=== PATIENT | female | born 1990 | race African-American/Black ===

== ENCOUNTER 2016-09-26 05:27 | Day surgery (SDC) | payer OTHER ==
[2016-09-23 13:05] VITALS: BMI 22.4
--- NOTE | 2016-09-26 11:03 | HP ---
History & Physical Update - History History: No Change - Physical Physical: No Change - Assessment Assessment: No Change - Plan Plan: No Change (Multipatrity and Desires permanent sterilization - for bilateral salpingectomy)
[2016-09-26] MEDS ORDERED: DEXAMETHASONE SOD PHOSPHATE 4 MG/1 ML VIAL ONE (11:06)
[2016-09-26] MEDS ORDERED: ROCURONIUM BROMIDE 50 MG/5 ML VIAL ONE (11:06)
[2016-09-26] MEDS ORDERED: KETOROLAC TROMETHAMINE 30 MG/1 ML VIAL ONE (11:06)
[2016-09-26] MEDS ORDERED: MIDAZOLAM HCL 2 MG/2 ML SINGLE DOSE VIAL ONE (11:06)
[2016-09-26] MEDS ORDERED: ACETAMINOPHEN 325 MG TABLET (FP) PO PRN (11:17)
[2016-09-26] MEDS ORDERED: IBUPROFEN 800 MG/8 ML IJ IVPB PRN (11:17)
[2016-09-26] MEDS ORDERED: LACTATED RINGERS SOLUTION 1,000 ML IV SCH (11:30)
[2016-09-26] MEDS ORDERED: BUPIVACAINE HCL/PF 0.5% (5MG/ML) 10 ML VIAL IJ ONE (11:48)
[2016-09-26] MEDS ORDERED: NEOSTIGMINE METHYLSULFATE 0.5 MG/ML - 10 ML MDV ONE (11:55)
[2016-09-26] MEDS ORDERED: GLYCOPYRROLATE 0.2 MG/1 ML VIAL ONE (11:55)
--- NOTE | 2016-09-26 12:18 | SURG ---
Surgery Ethylbenzene Converter Operator Note Ethylbenzene Converter Operator: Ashley Caldera PA-C Date of Service: 09/26/16 Diagnosis: Multiparity and desires permanent sterilization Procedure: laparoscopic bilateral salpingectomy I was present for the entirety of the operative procedure. For further detail, please refer to operative report. Visit type - Case Type Case Type: Scheduled Admission - New patient This patient is new to me today: Yes Date on this admission: 09/26/16
[2016-09-26] MEDS ORDERED: oxyCODONE HCL 5 MG TABLET PO PRN (12:19)
[2016-09-26] MEDS ORDERED: ONDANSETRON 4 MG/2 ML VIAL IVPUSH PRN (12:19)
--- NOTE | 2016-09-26 13:29 | OP ---
Operative Note - Note: Operative Date: 09/26/16 Pre-Operative Diagnosis: multiparity, desires permanent sterilization Operation: laparoscopic bilateral salpingectomy Findings: normal uterus normal bilateral tubes and ovaries normal intra abdominal anatomy Post-Operative Diagnosis: Same as Pre-op Surgeon: Samantha Mccarthy Police [employer] Lieutenant: Ashley Caldera Anesthesiologist/CREW MANAGER: Jason Luna Jr. Anesthesia: General Specimens Removed: bilateral fallopian tubes Estimated Blood Loss (mls): 10 Operative Report Dictated: Yes
[2016-09-26 13:54] VITALS: TEMP 98
--- NOTE | 2016-09-26 14:15 | OP ---
DATE OF OPERATION: 09/26/2016 PREOPERATIVE DIAGNOSIS: Multiparity and a desire for permanent sterilization. POSTOPERATIVE DIAGNOSIS: Multiparity and a desire for permanent sterilization. PROCEDURE: Laparoscopic bilateral salpingectomy. SURGEON: Samantha Mccarthy MD SCIENTIFIC SYSTEMS ANALYST: GABBY Jones ANESTHESIA: General administered by Jason Luna CRNA. ESTIMATED BLOOD LOSS: 10 mL. COMPLICATIONS: None. SPECIMENS: Include bilateral fallopian tubes. COUNTS: Sponge, needle, and instrument counts were correct at the end of the case. DISPOSITION: Stable to PACU. BRIEF HISTORY AND PROCEDURE: Patient is a 26-year-old para 4 female who has been requesting voluntary sterilization in the office. She was consented for the procedure, laparoscopic bilateral salpingectomy, and consents were signed in the office. The patient was then admitted to [facility] on September 26, 2016. Consents were reconfirmed. She was then taken back to the operating room, where she was given general anesthesia and then prepped and draped in the dorsal lithotomy position in the usual standard fashion. A Qiu catheter was placed. Next, a 5-mm skin incision was created in the umbilicus, and a Veress needle was placed intraabdominally, and the abdomen was insufflated with CO2 gas. A trocar was then placed, and a camera was inserted to confirm intraabdominal placement. Then, 2 bilateral lower quadrant ports 5 mm in size were inserted under direct visualization. The left fallopian tube was identified and traced to its fimbriated end and elevated and dissected off its attachment to the ovary, mesosalpinx, and the uterus, and then was removed from the abdominal cavity under direct visualization and sent to Pathology. The same was repeated with the right fallopian tube. Bilateral surgical sites were noted to be hemostatic. Bilateral ureters were examined and noted within normal caliber and peristalsing. Bilateral ovaries were normal, uterus was normal, and intraabdominal contents were normal. Hemostasis was again appreciated after inspection, and all instruments and trocars were removed from the abdomen under direct visualization. The abdomen was then desufflated. The skin incisions were reapproximated using Biosyn suture and skin glue and Marcaine was placed under the skin for further pain management. The patient was then awoken from the anesthesia, recovering in stable condition. The Qiu catheter was removed. Sponge, needle, and instrument counts were reported to be correct, and she was recovering in stable condition in the PACU at the time of this dictation. SAMANTHA MCCARTHY DO /[id number] MTDD
[2016-09-26 19:37] VITALS: BP 104/62; PULSE 64
--- NOTE | 2016-09-27 11:27 | PATH ---
Surgical Pathology Report Patient Name: PHILLIP HUGHES [facility]. Rec. #: [id number] /Age/Gender: 1990 (Age: 26) / F Account: [id number] Location: [facility] SURGICAL Taken: 09/26/2016 Received: 09/26/2016 Reported: 09/27/2016 Physicians: Samantha Mccarthy M.D. Specimen(s) Received A: FALLOPIAN TUBE, LEFT B: FALLOPIAN TUBE, RIGHT Clinical History Voluntary sterilization/multiparity Laparoscopic bilateral salpingectomy Final Diagnosis A. LEFT FALLOPIAN TUBE, SALPINGECTOMY: FULL LUMINAL PORTION OF UNREMARKABLE FALLOPIAN TUBE, INCLUDING FIMBRIATED END. B. RIGHT FALLOPIAN TUBE, SALPINGECTOMY: FULL LUMINAL PORTION OF UNREMARKABLE FALLOPIAN TUBE, INCLUDING FIMBRIATED END. Electronically Signed Taiwo Spain M.D. Gross Description A. Received in formalin labelled "fallopian tube, left" is an 8.5 cm long by up to 0.7 cm in diameter fallopian tube including the fimbriated end. No focal lesions are identified. Guidance Consultant sections are submitted in one cassette. B. Received in formalin labelled "fallopian tube, right" is 2 portions of fallopian tube including the fimbriated end. The 2 pieces measure in aggregate 7.5 cm long by up to 0.6 cm in diameter. No focal lesions are identified. Guidance Consultant sections are submitted one cassette. [facility]/09/26/2016 [facility]/09/26/2016
== END 2016-09-26 16:35 | disposition home or self-care (01) ==
LOC: JASU-SURG 05:27
PROVIDERS: ATTEND Obstetrics & Gynecology
PROC: 0U574ZZ Destruction of Bilateral Fallopian Tubes, Percutaneous Endoscopic Approach (ICD-10-PCS; principal; 2016-09-26 11:00)
DX: Z30.2 Encounter for sterilization (principal)
CPT/HCPCS: 88302-TC; 94760

== ENCOUNTER 2017-04-07 14:39 | Emergency (ER) | payer OTHER ==
[2017-04-07 14:45] VITALS: BP 94/49; PULSE 100; TEMP 98.6; BMI 22.4
--- NOTE | 2017-04-07 17:13 | PDOC ---
History of Present Illness - General Chief Complaint: Sore Throat Stated Complaint: ABD PAIN Time Seen by Provider: 04/07/17 16:32 History Source: Patient Exam Limitations: No Limitations - History of Present Illness Initial Comments: 04/07/17 17:00 26 yr female with sore throat, fatigue, urinary burning and genital herpes outbreak started yesterday. Pt denies fever or chills no vomiting or diarrhea. Pt has lower pelvic pain, states pain with intercourse. no abnormal bleeding . 04/07/17 17:20 04/07/17 18:35 Timing/Duration: unsure Past History - Past Medical History Allergies/Adverse Reactions: Allergies Allergy/AdvReac Type Severity Reaction Status Date / Time No Known Allergies Allergy Verified 04/07/17 14:42 Home Medications: Ambulatory Orders Acyclovir [Zovirax -] 800 mg PO TID #6 tablet 04/07/17 Anemia: No Asthma: No Cancer: No Cardiac Disorders: No CVA: No COPD: No CHF: No Dementia: No Diabetes: No GI Disorders: No Disorders: No HTN: No Hypercholesterolemia: No Liver Disease: No Seizures: No Thyroid Disease: No Other medical history: bacterial vaginosis x2 - Surgical History Abdominal Surgery: No Appendectomy: No Cardiac Surgery: No Cholecystectomy: No Lung Surgery: No Neurologic Surgery: No Orthopedic Surgery: No - Immunization History Immunization Up to Date: Yes - Suicide/Smoking/Psychosocial Hx Smoking History: Never smoked Have you smoked in the past 12 months: No Hx Alcohol Use: No Drug/Substance Use Hx: No Substance Use Type: None Hx Substance Use Treatment: No Review of Systems - Review of Systems Able to Perform ROS?: Yes Is the patient limited French proficient: No Constitutional: Yes: Symptoms Reported, Malaise HEENTM: Yes: Symptoms Reported, See HPI, Throat Pain Respiratory: No: Symptoms reported Cardiac (ROS): No: Symptoms Reported ABD/GI: Yes: Symptoms Reported : Yes: Symptoms Reported, Burning, Discharge Musculoskeletal: No: Symptoms Reported Integumentary: No: Symptoms Reported Neurological: No: Symptoms reported *Physical Exam - Vital Signs Last Vital Signs Temp Pulse Resp BP Pulse Ox 98.6 F 100 H 20 94/49 99 04/07/17 14:42 04/07/17 14:42 04/07/17 14:42 04/07/17 14:42 04/07/17 14:42 - Physical Exam General Appearance: Yes: Nourished, Appropriately Dressed HEENT: positive: EOMI, KATHIE, TMs Normal, Pharyngeal Erythema. negative: Tonsillar Exudate, Tonsillar Erythema Neck: positive: Supple, Lymphadenopathy (R) Respiratory/Chest: positive: Lungs Clear, Normal Breath Sounds. negative: Chest Tender Cardiovascular: positive: Regular Rhythm, Regular Rate Female Pelvic Exam: positive: discharge (watery soliman thin , herpetic lesion to the outer labia minora) Gastrointestinal/Abdominal: positive: Normal Bowel Sounds, Soft Lymphatic: negative: Adenopathy Musculoskeletal: positive: Normal Inspection Extremity: positive: Normal Capillary Refill, Normal Inspection, Normal Range of Motion. negative: Tender Integumentary: positive: Normal Color, Dry, Warm Neurologic: positive: Fully Oriented, Alert, Normal Mood/Affect, Normal Response , Motor Strength 5/5 Medical Decision Making - Medical Decision Making 04/07/17 17:03 cc: urinary burning with vaginal discharge, for 2 days, sore throat and notice a herpetic lesion to the genital area (pt has history of genital herpes last outbreak more than one year ago) pt denies nvd or fever will check urine GC chlamydia vitals stable non toxic 04/07/17 17:14 *DC/Admit/Observation/Transfer Diagnosis at time of Disposition: Genital herpes Qualifiers: Herpes simplex infection site: vulvovaginitis Qualified Code(s): A60.04 - Herpesviral vulvovaginitis Pharyngitis Qualifiers: Pharyngitis/tonsillitis etiology: other specified organisms Qualified Code(s): J02.8 - Acute pharyngitis due to other specified organisms - Discharge Dispostion Disposition: HOME Condition at time of disposition: Good - Prescriptions Prescriptions: Acyclovir [Zovirax -] 800 mg PO TID #6 tablet - Referrals Referrals: Parth Pfeiffer MD [Primary Care Provider] - - Patient Instructions Additional Instructions: 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
[2017-04-07 17:51] LABS: URINE APPEARANCE CLEAR; URINE BILIRUBIN NEGATIVE (NEGATIVE); URINE BLOOD NEGATIVE (NEGATIVE); URINE COLOR YELLOW; URINE GLUCOSE (UA) NEGATIVE (NEGATIVE); URINE KETONE NEGATIVE (NEGATIVE); URINE LEUK ESTERASE TRACE (NEGATIVE); URINE NITRITE NEGATIVE (NEGATIVE); URINE UROBILINOGEN NEGATIVE mg/dL (0.2-1.0)
[2017-04-07 18:02] LABS: URINE PROTEIN 1+ (NEGATIVE)
[2017-04-07 18:03] LABS: URINE RBC <1 /hpf (0-3); URINE WBC 1 /hpf (3-5)
[2017-04-07] MEDS ORDERED: AZITHROMYCIN 1 GM PACKET PO ONE (18:35)
[2017-04-07] MEDS ORDERED: LIDOCAINE HCL 2% JELLY 10 ML CARTRIDGE ONE (18:41)
[2017-04-07] MEDS ORDERED: AZITHROMYCIN 500 MG TABLET PO ONE (19:01)
== END 2017-04-07 19:08 | disposition home or self-care (01) ==
LOC: JERFT 14:39
DX: J02.8 Acute pharyngitis due to other specified organisms (principal); A60.04 Herpesviral vulvovaginitis
CPT/HCPCS: 36415; 81003; 81015; 84703; 87070; 87086; 87205; 87491; 87591; 96372; 99281-25

== ENCOUNTER 2018-12-25 10:02 | Emergency (ER) | payer OTHER ==
[2018-12-25 10:20] VITALS: BP 124/70; PULSE 70; TEMP 98.3; BMI 24.7
[2018-12-25] MEDS ORDERED: SODIUM CHLORIDE FOR INHALATION 3 ML VIAL.NEB IH ONE (11:06)
--- NOTE | 2018-12-25 11:41 | PDOC ---
History of Present Illness - General Chief Complaint: Sore Throat Stated Complaint: SORE THROAT / EAR INFECTION Time Seen by Provider: 12/25/18 10:55 History Source: Patient Exam Limitations: No Limitations Past History - Past Medical History Allergies/Adverse Reactions: Allergies Allergy/AdvReac Type Severity Reaction Status Date / Time No Known Allergies Allergy Verified 12/25/18 10:18 Home Medications: Ambulatory Orders Hydrocortisone Acetate [Anusol Hc Suppository -] 25 mg RC DAILY PRN #7 supp.rect 05/11/17 Anemia: No Asthma: No Cancer: No Cardiac Disorders: No CVA: No COPD: No CHF: No Dementia: No Diabetes: No GI Disorders: No Disorders: No HTN: No Hypercholesterolemia: No Liver Disease: No Seizures: No Thyroid Disease: No - Surgical History Abdominal Surgery: No Appendectomy: No Cardiac Surgery: No Cholecystectomy: No Lung Surgery: No Neurologic Surgery: No Orthopedic Surgery: No - Immunization History Immunization Up to Date: Yes - Suicide/Smoking/Psychosocial Hx Smoking History: Never smoked Have you smoked in the past 12 months: No Information on smoking cessation initiated: No Hx Alcohol Use: No Drug/Substance Use Hx: No Substance Use Type: None Hx Substance Use Treatment: No *Physical Exam - Vital Signs Last Vital Signs Temp Pulse Resp BP Pulse Ox 98.3 F 70 17 124/70 100 12/25/18 10:18 12/25/18 10:18 12/25/18 10:18 12/25/18 10:18 12/25/18 11:11 - Physical Exam General Appearance: No: Apparent Distress HEENT: positive: Normal ENT Inspection, TMs Normal, Pharynx Normal, Other (+ voice hoarseness). negative: Muffled/Hoarse voice, Pharyngeal Erythema, Tonsillar Exudate, Tonsillar Erythema, Nasal Congestion, Rhinorrhea Neck: negative: Lymphadenopathy (R), Lymphadenopathy (L) Respiratory/Chest: positive: Lungs Clear, Normal Breath Sounds. negative: Respiratory Distress Cardiovascular: positive: Regular Rhythm, Regular Rate, S1, S2. negative: Murmur Gastrointestinal/Abdominal: positive: Normal Bowel Sounds, Soft. negative: Tender, Distended, Guarding, Rebound Integumentary: positive: Normal Color Neurologic: positive: Alert, Normal Mood/Affect ED Treatment Course - Medications Given in the ED: ED Medications Discontinued Medications Generic Name Dose Route Start Last Admin Trade Name Freq PRN Reason Stop Dose Admin Sodium Chloride 3 ml 12/25/18 11:06 12/25/18 11:11 Normal Saline For Inhalation - IH 12/25/18 11:07 3 ml ONCE ONE Administration Medical Decision Making - Medical Decision Making 28 y/o F with no sig pmh presents with dry cough x 1 week along with mild throat discomfort, now worsening. States she awoke today and noticed she was losing her voice. Yesterday, she drank tea and ate [place], which helped with her symptoms but today, her voice was worst. Also c/o R ear pain x 2 days. Denies fever, nasal congestion, rhinorrhea, sneezing, sob, cp, abd pain, n/v/d. Denies smoking Likely laryngitis PE unremarkable Patient was given saline neb, but states was not helping Patient was to be discharged, but left prior to getting discharge paperwork or getting registered 12/25/18 11:36 *DC/Admit/Observation/Transfer Diagnosis at time of Disposition: Laryngitis - Discharge Dispostion Disposition: HOME - Referrals - Patient Instructions Printed Discharge Instructions: DI for Laryngitis - Post Discharge Activity
== END 2018-12-25 11:45 | disposition left against medical advice (07) ==
LOC: JERFT 10:02
PROC: 3E0337Z Introduction of Electrolytic and Water Balance Substance into Peripheral Vein, Percutaneous Approach (ICD-10-PCS; principal; 2018-12-25)
DX: J04.0 Acute laryngitis (principal)
CPT/HCPCS: 96360; 99281-25

== ENCOUNTER 2021-09-25 09:20 | Emergency (ER) | payer OTHER ==
[2021-09-25 09:29] VITALS: BP 101/68; PULSE 73; TEMP 97.9; BMI 26.6
[2021-09-25 11:27] LABS: BASO % 0.5 % (0-2.0); HEMOGLOBIN 10.4 GM/dL (10.7-15.3); LYMPH % 26.5 % (8-40); MCH 25.5 pg (25.7-33.7); MCHC 31.6 g/dl (32.0-36.0); MEAN CELL VOLUME 80.7 fl (80-96); MEAN PLT VOLUME 8.5 fl (7.5-11.1); PLATELET COUNT 294 10^3/uL (134-434); RBC 4.09 M/mm3 (3.60-5.2); WHITE BLOOD COUNT 5.8 K/mm3 (4.0-10.0)
[2021-09-25 11:48] LABS: CHLORIDE 104 mmol/L (98-107); SODIUM 138 mmol/L (136-145)
[2021-09-25 11:50] LABS: CALCIUM 9.3 mg/dL (8.5-10.1)
[2021-09-25 11:51] LABS: ALBUMIN 3.9 g/dl (3.4-5.0); ANION GAP 4 MMOL/L (8-16); BLOOD UREA NITROGEN 10.7 mg/dL (7-18); CO2 30 mmol/L (21-32); GLUCOSE,RANDOM 83 mg/dL (74-106)
[2021-09-25 11:54] LABS: CREATININE 0.6 mg/dL (0.55-1.3); SGOT/AST 14 U/L (15-37); SGPT/ALT 19 U/L (13-61)
[2021-09-25 11:56] LABS: BILIRUBIN,TOTAL 0.5 mg/dL (0.2-1); TOT PROT 7.6 g/dl (6.4-8.2)
[2021-09-25 11:57] LABS: ALK PHOS 79 U/L (45-117)
== END 2021-09-25 12:29 | disposition home or self-care (01) ==
LOC: JER 09:20
DX: R07.89 Other chest pain (principal)
CPT/HCPCS: 36415; 71046-TC-FY; 80053; 84484; 85025; 93005; 93010; 99285-25